=== PATIENT | female | born 1940 | race Caucasian/White ===

== ENCOUNTER → 2016-09-14 | Outpatient (CLI) | payer MEDICARE, OTHER | LOC: RAD 15:04 | PROVIDERS: ATTEND Physician Assistant | DX: R94.4 Abnormal results of kidney function studies (principal) | CPT/HCPCS: 76770 ==

== ENCOUNTER → 2016-12-21 | Outpatient (CLI) | payer MEDICARE, OTHER | LOC: WI 09:45 | PROVIDERS: ATTEND Physician Assistant | DX: M81.0 Age-related osteoporosis without current pathological fracture (principal) | CPT/HCPCS: 77080 ==

== ENCOUNTER → 2017-10-08 | Outpatient (CLI) | payer MEDICARE, OTHER ==
[~2017-10-08] MED LIST: ACETAMINOPHEN 325 MG TABLET PO PRN; CEFAZOLIN 2 GM/D5W RTU 2 GM/50 ML RTUPB IV PRN; RINGERS SOLUTION,LACTATED 1,000 ML IV PRN
--- NOTE | 2017-10-08 12:35 | RADIOLOGY REPORT (SQ) ---
EXAM DESCRIPTION: CHEST PA/LATERAL COMPLETED DATE/TIME: 10/08/2017 12:11 pm REASON FOR STUDY: COUGH COMPARISON: 01/15/2015. EXAM PARAMETERS: NUMBER OF VIEWS: two views TECHNIQUE: Digital Frontal and Lateral radiographic views of the chest acquired. RADIATION DOSE: NA LIMITATIONS: none FINDINGS: LUNGS AND PLEURA: No opacities, masses or pneumothorax. No pleural effusion. MEDIASTINUM AND HILAR STRUCTURES: No masses or contour abnormalities. HEART AND VASCULAR STRUCTURES: The heart is normal with aortic atherosclerosis. Pulmonary vasculatur e is normal. BONES: Dorsal spondylosis is seen. HARDWARE: Mitral valve prosthesis. Status post median sternotomy and CABG. IMPRESSION: STATUS POST CABG. MITRAL VALVE PROSTHESIS. NO ACUTE DISEASE. TECHNICAL DOCUMENTATION: JOB ID: [id number] [id number] 2010 [employer]- All Rights Reserved
== END ==
LOC: OD 11:00
PROVIDERS: ATTEND Physician Assistant
DX: R05 Cough (principal)
CPT/HCPCS: 71046

== ENCOUNTER 2018-01-07 09:14 | Day surgery (SDC) | payer MEDICARE, OTHER ==
[~2018-01-07 09:14] MED LIST changes: -ACETAMINOPHEN 325 MG TABLET PO PRN; -CEFAZOLIN 2 GM/D5W RTU 2 GM/50 ML RTUPB IV PRN; +PROPOFOL INJ 200 MG/20 ML VIAL IV ONE; -RINGERS SOLUTION,LACTATED 1,000 ML IV PRN
[2018-01-07 11:44] VITALS: BP 105/54
--- NOTE | 2018-01-07 13:57 | Operative Report ---
Operative Report DATE OF SURGERY: 01/07/18 Operative Report: The risks, benefits and alternatives of the procedure including risks of bleeding, perforation requiring surgery are explained to the patient in detail and informed consent is obtained. Patient was brought back to the endoscopy suite and placed in the left, lateral decubital position. Timeout was called. Propofol medications administered. A rectal examination is done which did not reveal any masses, tenderness of fissures. An Olympus endoscope was inserted into the patient's rectum. The scope was then carefully advanced all the way to the cecum. The cecum as identified by the usual anatomical landmarks including the ileocecal valve as well as the appendiceal orifice. Photodocumentation was obtained. Prep is good. The scope was then sequentially pulled back via the various segments of the colon including the ascending colon, hepatic flexure, transverse colon, splenic flexure, descending colon and finally into the rectosigmoid portions of the colon. Retroflexion maneuver was performed. PREOPERATIVE DIAGNOSIS: Change in bowel habits POSTOPERATIVE DIAGNOSIS: Right side colon inflammation status post biopsy. Diverticulosis. Internal hemorrhoids. Small polyp that is removed via snare polypectomy OPERATION: Colonoscopy with snare polypectomy. Colonoscopy with biopsy SURGEON: GUERA MUSTAFA ANESTHESIA: LMAC TISSUE REMOVED OR ALTERED: As noted above. COMPLICATIONS: None. ESTIMATED BLOOD LOSS: None. INTRAOPERATIVE FINDINGS: As noted above. PROCEDURE: Patient tolerated the procedure well. No immediate postprocedure complications are noted. Patient discharged in good condition. Discharge date 01/07/2018. Discharge diet: Regular. Discharge activity: Regular. 2-3 week follow-up to discuss findings. 3-5 year surveillance colonoscopy. We will wait on pathology.
== END 2018-01-07 11:30 | disposition home or self-care (01) ==
LOC: END 09:14
PROVIDERS: ATTEND Internal Medicine Gastroenterology
DX: K52.9 Noninfective gastroenteritis and colitis, unspecified (principal); D12.4 Benign neoplasm of descending colon; K57.30 Diverticulosis of large intestine without perforation or abscess without bleeding; K64.8 Other hemorrhoids; J45.909 Unspecified asthma, uncomplicated; M19.90 Unspecified osteoarthritis, unspecified site; Z87.891 Personal history of nicotine dependence; Z79.51 Long term (current) use of inhaled steroids; Z79.891 Long term (current) use of opiate analgesic; Z88.8 Allergy status to other drugs, medicaments and biological substances
CPT/HCPCS: 45380; 45385; 811; 88305; J2704

== ENCOUNTER → 2018-04-29 | Outpatient (CLI) | payer MEDICARE, OTHER ==
--- NOTE | 2018-04-29 10:15 | RADIOLOGY REPORT (SQ) ---
EXAM DESCRIPTION: U/S RETROPERITON (RENAL/AORTA) COMPLETED DATE/TIME: 04/29/2018 10:04 am REASON FOR STUDY: UTI (N39.0) N39.0 URINARY TRACT INFECTION, SITE NOT SPECIFIED COMPARISON: 09/14/2016 TECHNIQUE: Dynamic and static grayscale images acquired of the kidneys and bladder and recorded on P ACS. Additional selected color Doppler and spectral images recorded. LIMITATIONS: None. FINDINGS: RIGHT KIDNEY: The right kidney measures 9.7 cm in length, normal size. Normal echogenicit y. No solid or suspicious masses. No hydronephrosis. No calcifications. LEFT KIDNEY: The left kidney measures 9.4 cm in length, normal size. Normal echogenicity. No solid o r suspicious masses. No hydronephrosis. No calcifications. BLADDER: No masses. Bilateral ureteral jets not visualized. OTHER FINDINGS: No other significant finding. IMPRESSION: 1. No significant interval changes since the prior study dated 09/14/2016. NORMAL RENAL AND BLADDER ULTRASOUND. TECHNICAL DOCUMENTATION: JOB ID: [id number] [employer]- All Rights Reserved Reading location - IP/workstation name: [email or web address]
== END ==
LOC: RAD 09:34
PROVIDERS: ATTEND Urology
DX: N39.0 Urinary tract infection, site not specified (principal)
CPT/HCPCS: 76770

== ENCOUNTER → 2018-08-28 | Outpatient (CLI) | payer MEDICARE, OTHER ==
--- NOTE | 2018-08-28 13:43 | RADIOLOGY REPORT (SQ) ---
EXAM DESCRIPTION: CHEST PA/LATERAL COMPLETED DATE/TIME: 08/28/2018 12:46 pm REASON FOR STUDY: COUGH COMPARISON: 01/15/2015 EXAM PARAMETERS: NUMBER OF VIEWS: two views TECHNIQUE: Digital Frontal and Lateral radiographic views of the chest acquired. RADIATION DOSE: NA LIMITATIONS: none FINDINGS: LUNGS AND PLEURA: Emphysematous change with hyperinflation and flattening of the bilateral hemidiaphragm, stable. All ill-defined hazy right upper lobe airspace disease. No pleural effusion or pneumothorax. MEDIASTINUM AND HILAR STRUCTURES: No masses or contour abnormalities. HEART AND VASCULAR STRUCTURES: Normal heart size. Atherosclerotic aorta. Evidence of prior CABG. BONES: Median sternotomy changes. No acute bony abnormality. HARDWARE: Median sternotomy wires, CABG markers and aortic valvular prosthesis. OTHER: No other significant finding. IMPRESSION: Hazy right upper lobe opacities suggestive of pneumonia. TECHNICAL DOCUMENTATION: JOB ID: [id number] [employer]- All Rights Reserved Reading location - IP/workstation name: [email or web address]
== END ==
LOC: OD 12:36
PROVIDERS: ATTEND Family Medicine
DX: R05 Cough (principal)
CPT/HCPCS: 71046

== ENCOUNTER → 2018-09-04 | Outpatient (CLI) | payer MEDICARE, OTHER ==
--- NOTE | 2018-09-04 12:25 | RADIOLOGY REPORT (SQ) ---
EXAM DESCRIPTION: CHEST PA/LATERAL COMPLETED DATE/TIME: 09/04/2018 11:42 am REASON FOR STUDY: BRONCHOPNEUMONIA COMPARISON: 08/28/2018. TECHNIQUE: Frontal and lateral radiographic views of the chest acquired. NUMBER OF VIEWS: Two view. LIMITATIONS: None. FINDINGS: LUNGS AND PLEURA: Hyperinflated lungs, generally clear today. Opacity in the right upper lobe looks essentially resolved. MEDIASTINUM AND HILAR STRUCTURES: Stable contours. HEART AND VASCULAR STRUCTURES: Heart normal size. No evidence for failure. BONES: Osteopenic. HARDWARE: None in the chest. OTHER: No other significant finding. IMPRESSION: Resolved right upper lobe infiltrate. COPD. TECHNICAL DOCUMENTATION: JOB ID: [id number] [employer]- All Rights Reserved Reading location - IP/workstation name: [email or web address]
== END ==
LOC: OD 11:21
PROVIDERS: ATTEND Family Medicine
DX: J18.0 Bronchopneumonia, unspecified organism (principal); J44.9 Chronic obstructive pulmonary disease, unspecified
CPT/HCPCS: 71046

== ENCOUNTER → 2019-06-10 | Outpatient (CLI) | payer MEDICARE, OTHER ==
--- NOTE | 2019-06-11 11:41 | RADIOLOGY REPORT (SQ) ---
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 No Was the patient offered tobacco cessation counseling? No Was the patient engaged in shared decision making for this test? Yes Does the patient have signs or symptoms of Lung Cancer? No Is the patient a smoker? No How many pack years? 50 How many years since quitting smoking? 17 Patients age: 78 COMPARISON: None. TECHNIQUE: Low Dose CT scan performed of the chest without intravenous contrast for purposes of scre ening for lung cancer. Images reviewed with lung, soft tissue and bone windows. Reconstructed coron al and sagittal MPR images reviewed. All images stored on PACS. All CT scanners at this facility use dose modulation, iterative reconstruction, and/or weight based d osing when appropriate to reduce radiation dose to as low as reasonably achievable (ALARA). [facility]: Dose Right [facility]: CareDose [facility]: Dose Right [facility]: Teradose 4D [facility]: Smart SPIRIT Navigation RADIATION DOSE: CT Rad equipment meets quality standard of care and radiation dose reduction techniq ues were employed. CTDIvol: 2.0 mGy. DLP: 80 mGy-cm. mGy. . LIMITATIONS: None FINDINGS: LUNGS AND PLEURA: There are several right-sided pulmonary nodules. Most are subpleural in location. There are 2 in the right base and 2 nodules in the right upper lobe. The largest upper l obe nodule is best demonstrated on series 3, image 111. This measures 6.4 mm in diameter. It is ple ural-based. The smaller nodule measures 4.7 mm and is best demonstrated on series 3, image 61. In t he right base there are 2 subpleural nodules these are best demonstrated on series 3, image 215. The largest measures 7.8 mm. The smaller lesion measures 4.7 mm. No pleural effusions or calcification s. No pneumothorax. There is scarring in the right lung apex. There are bilateral emphysematous c hanges. HILAR AND MEDIASTINAL STRUCTURES: No identified masses. No abnormal nodes. There is a small hiatal hernia. HEART AND VASCULAR STRUCTURES: No aortic aneurysm. No pericardial effusion. No cardiac devices. P rior sternotomy. CORONARY ARTERY CALCIFICATIONS: No significant calcifications. UPPER ABDOMEN, THYROID, BONES, OTHER SOFT TISSUES: No significant findings. IMPRESSION: 1. Multiple right-sided pulmonary nodules. The largest measures 7.8 mm in diameter. P lease see below for recommended follow-up. 2. Bilateral emphysematous changes with scarring in the right lung apex. LUNGRADS: LUNGRADS: 3. Most likely benign findings. Short term follow-up is recommended. Please see below. MODIFIER: NONE RECOMMENDATION: Continue annual screening with LDCT in 6 months. COMMENT: CRITERIA: Solid nodule(s):> 6 mm to < 8 mm at baseline or new 4 mm to less than 6 mm nodule. TECHNICAL DOCUMENTATION: JOB ID: [id number] Quality ID # [id number]: Final reports with documentation of one or more dose reduction techniques (e.g., Au tomated exposure control, adjustment of the mA and/or kV according to patient size, use of iterative reconstruction technique) 2010 [facility] Radiology Reading location - IP/workstation name: [email or web address]
== END ==
LOC: RAD 08:48
PROVIDERS: ATTEND Physician Assistant
DX: Z12.2 Encounter for screening for malignant neoplasm of respiratory organs (principal); R05 Cough; Z87.891 Personal history of nicotine dependence
CPT/HCPCS: G0297